=== PATIENT | female | born 1960 | race Two or more races ===

== ENCOUNTER 2016-04-15 14:08 | Emergency (ER) | payer BC, OTHER ==
[~2016-04-15] VITALS: Ht 160 cm; Wt 91.3 kg
[2016-04-15 14:14] VITALS: BP 157/111; PULSE 113; RESP 18; TEMP 97.9; O2SAT 97
[2016-04-15] MEDS ORDERED: METF500T PO (15:04)
[2016-04-15] MEDS ORDERED: CANA100T PO (15:04)
[2016-04-15] MEDS ORDERED: ASPI81CH CHEW (15:04)
[2016-04-15] MEDS ORDERED: ENAL2.5T PO (15:04)
[2016-04-15] MEDS ORDERED: INSU1INJ14 SQ (15:04)
[2016-04-15] MEDS ORDERED: NOVOLOGP2 SQ (15:04)
[2016-04-15] MEDS ORDERED: METH2.5T PO (15:05)
[2016-04-15] MEDS ORDERED: ADAL1INJ SQ (15:05)
[2016-04-15] MEDS ORDERED: BUPIVACAINE HCL PF 0.5% 10 ML VIAL INFIL ONE (15:15)
--- NOTE | 2016-04-15 15:44 | PD ---
HPI Chief Complaint: Fall Time Seen by Provider: 15:00 Travel History International Travel<30 days: No Contact w/Intl Traveler<30days: No Traveled to known affect area: No History of Present Illness HPI Patient is a 56-year-old female who presents emergency evaluation of a head injury as well as a fishhook in her thumb. Patient was fidgeting with her when she attempted to remove a weight from a fishing lure, she lost her balance falling back subsequently hitting her head and impaling the fishhook in her right thumb. She denies any loss of consciousness but reports a dull headache, fall was witnessed by her who is present. Patient's last tetanus vaccination was 3 years ago. She denies any dizziness, nausea, weakness in extremities. PFSH Past Medical History Cardiovascular Problems: Yes (HTN) Diabetes: Yes Patient Takes Glucophage: Yes ?: Not Social History Alcohol Use: No Tobacco Use: No Substance Use: No Allergies-Medications (Allergen,Severity, Reaction): Coded Allergies: No Known Allergies (Unverified , 04/15/16) Reported Meds & Prescriptions Reported Meds & Active Scripts Active Reported Methotrexate 2.5 Mg Tab Unknown Dose PO Q7D Tresiba Flextouch Pen Inj (Insulin Degludec Inj) 300 unit/3 ML Pen 1 Units SQ TID Novolog Inj (Insulin Aspart) 1,000 Unit/10 Ml Vial 0 SQ DIRECTED Sliding Scale as directed. Enalapril (Enalapril Maleate) 2.5 Mg Tab Unknown Dose PO BID Metformin (Metformin HCl) 500 Mg Tab 500 Mg PO BIDPC With meals Aspirin 81 Mg Chew 81 Mg CHEW DAILY Review of Systems Except as stated in HPI: all other systems reviewed are Neg Musculoskeletal: Positive: Myalgias Skin: Positive Other (fishhook in right thumb, contusion to posterior scalp) Physical Exam Narrative GENERAL: Well-developed, well-nourished, alert female. Resting comfortably in no acute distress. SKIN: Warm and dry. [place] in the lateral aspect of the right thumb. HEAD: Contusion to posterior scalp. Normocephalic. EYES: Pupils equal and round. No scleral icterus. No injection or drainage. ENT: No nasal bleeding or discharge. Mucous membranes pink and moist. NECK: Trachea midline. No JVD. CARDIOVASCULAR: Regular rate and rhythm. No murmur appreciated. RESPIRATORY: No accessory muscle use. Clear to auscultation. Breath sounds equal bilaterally. GASTROINTESTINAL: Abdomen soft, non-tender, nondistended. Hepatic and splenic margins not palpable. MUSCULOSKELETAL: No obvious deformities. No clubbing. No cyanosis. No edema. NEUROLOGICAL: Awake and alert. No obvious cranial nerve deficits. Motor grossly within normal limits. Normal speech. PSYCHIATRIC: Appropriate mood and affect; insight and judgment normal. Data Data Last Documented VS Vital Signs Date Time Temp Pulse Resp B/P Pulse Ox O2 Delivery O2 Flow Rate FiO2 04/15/16 14:14 97.9 113 18 157/[address] Brain W/O Iv Contrast(Rout) (04/15/16 ) Bupivacaine Pf 0.5% Inj (Marcaine Pf 0.5 (04/15/16 15:15) Cephalexin (Keflex) (04/15/16 16:00) Doxycycline (Vibramycin) (04/15/16 16:00) Levofloxacin (Levaquin) (04/15/16 16:00) MDM Medical Decision Making Medical Screen Exam Complete: Yes Emergency Medical Condition: Yes Interpretation(s) Vital Signs Date Time Temp Pulse Resp B/P Pulse Ox O2 Delivery O2 Flow Rate FiO2 04/15/16 14:14 97.9 113 18 157/111 97 Differential Diagnosis Contusion versus fracture versus hemorrhage versus infection versus other Narrative Course Patient's 56-year-old female who presented to the emergency department for evaluation of a fishhook to her thumb as well as contusion to her head after she sustained a fall hitting a rock. Patient is neurologically intact. She does take 81 mg of aspirin daily. Tetanus vaccine is up-to-date per patient's report. CT scan ordered and pending. Bupivacaine ordered for digital block on right thumb. Procedures Procedure Narrative LACERATION LOCATION: Posterior scalp LENGTH: 1.5 cm NUMBER OF STITCHES/FABIÁN: 3 fabián REPAIR: The area of the laceration was prepped with Betadine and sterilely draped. The laceration was infiltrated with 2% Xylocaine. The wound was copiously irrigated and explored without evidence of foreign body, tendon injury or neurovascular injury. The wound was closed using fabián]. This was a 1 layer repair. Patient tolerated the procedure well. She was advised to return to emergency department or follow-up with her primary doctor in 7-10 days to have fabián removed. Diagnosis Primary Impression: Laceration Additional Impressions: Head injury Qualified Code: S09.90XA - Head injury, initial encounter Foreign body finger Referrals: Primary Care Physician Patient Instructions: Contusion in Adults (ED), General Instructions, Head Injury (ED), Laceration (ED), Soft Tissue Foreign Body (ED) Additional Instructions: Fabián will need to be removed in 7-10 days, this can be done in the emergency department or with your primary doctor Complete full course of antibiotics as prescribed Return to emergency department for any new or worsening symptoms Med/Other Pt SpecificInfo: Prescription(s) given Scripts Levofloxacin (Levaquin)750 Mg [id number] Mg PO DAILY #5 TAB Ref 0 Prov:Brenda Abernathy 04/15/16 Cephalexin (Keflex)500 Mg [id number] Mg PO Q6H 10 Days Ref 0 Prov:Brenda Abernathy 04/15/16 Doxycycline Hyclate 100 Mg [id number] Mg PO BID #20 CAP Ref 0 Prov:Brenda Abernathy 04/15/16 Disposition: 01 DISCHARGE HOME Condition: Stable Brenda Abernathy Apr 15, 2016 15:44
[2016-04-15] MEDS ORDERED: DOXYCYCLINE HYCLATE 100 MG CAP PO ONE (16:00)
[2016-04-15] MEDS ORDERED: LEVOFLOXACIN 750 MG TAB PO ONE (16:00)
[2016-04-15] MEDS ORDERED: CEPHALEXIN MONOHYDRATE 500 MG CAP PO ONE (16:00)
--- NOTE | 2016-04-15 16:19 | RADHPO ---
EXAM DATE/TIME: 04/15/2016 15:59 [facility] COMPARISON: No previous studies available for comparison. INDICATIONS : Trauma. Fall. Laceration to back of head. RADIATION DOSE: 56.41 CTDIvol (mGy) MEDICAL HISTORY : Hypertension. Diabetes mellitus type 2. SURGICAL HISTORY : None. ENCOUNTER: Initial ACUITY: 1 day PAIN SCALE: 10/10 LOCATION: occipital TECHNIQUE: Multiple contiguous axial images were obtained of the head. Using automated exposure control and adj ustment of the mA and/or kV according to patient size, radiation dose was kept as low as reasonably a chievable to obtain optimal diagnostic quality images. FINDINGS: CEREBRUM: The ventricles are normal for age. No evidence of midline shift, mass lesion, hemorrhage or acute in farction. No extra-axial fluid collections are seen. POSTERIOR FOSSA: The cerebellum and brainstem are intact. The 4th ventricle is midline. The cerebellopontine angle i s unremarkable. EXTRACRANIAL: The visualized portion of the orbits is intact. SKULL: The calvaria is intact. No evidence of skull fracture. CONCLUSION: 1. No evidence of acute intracranial pathology. No masses are identified. Gaudencio Florian MD on April 15, 2016 at 16:16 Board Certified Radiologist. This report was verified electronically.
[2016-04-15] MEDS ORDERED: DOXY100C PO (16:46)
[2016-04-15] MEDS ORDERED: CEPH-460 PO (16:46)
[2016-04-15] MEDS ORDERED: LEVA750T PO (16:46)
--- NOTE | 2016-05-21 12:15 | PD ---
Data Data Orders Ct Brain W/O Iv Contrast(Rout) (04/15/16 ) Bupivacaine Pf 0.5% Inj (Marcaine Pf 0.5 (04/15/16 15:15) Cephalexin (Keflex) (04/15/16 16:00) Doxycycline (Vibramycin) (04/15/16 16:00) Levofloxacin (Levaquin) (04/15/16 16:00) MDM Supervised Visit with [facility]: Yes Narrative Course Patient seen and examined by me in addition to Brenda ROY. Agree with physical exam findings and plan. Discussed with patient and [employer]. [place] removed by me after CT negative, and lac repaired by [employer], patient stable for discharge. Procedures Procedure Narrative Foreign body removal: Patient examined and neurologically intact in the thumb. Anesthetized with 1% lidocaine plain by ring block of right thumb. attempted to back out the hook through the skin without success 2/2 hook's didier. A small martinez incision (< 0.25cm) made with 11 blade at the point the hook has penetrated the skin, The fish hook was retracted through the laceration with minimal manipulation. No bleeding. Diagnosis Primary Impression: Laceration Additional Impressions: Head injury Qualified Code: S09.90XA - Head injury, initial encounter Foreign body finger Referrals: ADIN [place] M.D. (PCP) call for appointment Primary Care Physician call for appointment Patient Instructions: General Instructions, Laceration (ED), Soft Tissue Foreign Body (ED), Head Injury (ED), Contusion in Adults (ED) Departure Forms: Tests/Procedures Additional Instruction: Carlos will need to be removed in 7-10 days, this can be done in the emergency department or with your primary doctor Complete full course of antibiotics as prescribed Return to emergency department for any new or worsening symptoms Scripts Levofloxacin (Levaquin)750 Mg [id number] Mg PO DAILY #5 TAB Ref 0 Prov:Brenda Abernathy 04/15/16 Cephalexin (Keflex)500 Mg [id number] Mg PO Q6H 10 Days Ref 0 Prov:Brenda Abernathy 04/15/16 Doxycycline Hyclate 100 Mg [id number] Mg PO BID #20 CAP Ref 0 Prov:Brenda Abernathy 04/15/16 Disposition: 01 DISCHARGE HOME Condition: Stable Jarrod Lakhani MD May 21, 2016 12:15
== END 2016-04-15 17:13 | disposition home or self-care (01) ==
LOC: PHED 14:08 → PHEFT 17:13
DX: S01.01XA Laceration without foreign body of scalp, initial encounter (principal); S61.041A Puncture wound with foreign body of right thumb without damage to nail, initial encounter; I10 Essential (primary) hypertension; E11.9 Type 2 diabetes mellitus without complications; W45.8XXA Other foreign body or object entering through skin, initial encounter; W22.8XXA Striking against or struck by other objects, initial encounter; W18.39XA Other fall on same level, initial encounter; Y93.89 Activity, other specified; Y92.9 Unspecified place or not applicable; Y99.8 Other external cause status
CPT/HCPCS: 10120; 12001; 64450; 70450